=== PATIENT | male | born 1970 | race Caucasian/White ===

== ENCOUNTER 2019-04-07 16:04 | Emergency (ER) | payer OTHER ==
[2019-04-07] MEDS ORDERED: SODIUM CHLORIDE 0.9% 1,000 ML IV STA ×2 (16:17)
[2019-04-07] MEDS ORDERED: MORPHINE SULFATE 4 MG/ML SYRINGE IVP STA (16:23)
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
[2019-04-07 16:45] LABS: Basophils # (A) 0.1 k/uL (0-0.2); Basophils % (A) 1 %; Eosinophils # (A) 0.4 k/uL (0-0.7); Eosinophils % (A) 3 %; HCT 43.5 % (39.0-53.0); Lymphocytes # (A) 2.4 k/uL (1.0-4.8); Lymphocytes % (A) 19 %; MCH 28.1 pg (25.0-35.0); MCHC 32.3 g/dL (31.0-37.0); Mean Platelet Volume 6.7; Monocytes # (A) 0.6 k/uL (0-1.0); Monocytes % (A) 5 %; Neutrophils % (A) 71 %; Platelet Count 457 k/uL (150-450); RDW 13.1 % (11.5-15.5); WBC 12.7 k/uL (3.8-10.6)
[2019-04-07 16:53] LABS: ALT 32 U/L (21-72); AST 28 U/L (17-59); African American GFR (CKD) >90 (>60 ml/min/1.73 sqM); Albumin 4.3 g/dL (3.5-5.0); Alcohol <10 mg/dL; Alkaline Phosphatase 58 U/L (38-126); Anion Gap 9 mmol/L; Blood Urea Nitrogen 23 mg/dL (9-20); Calcium 9.4 mg/dL (8.4-10.2); Carbon Dioxide 30 mmol/L (22-30); Chloride 104 mmol/L (98-107); Glucose 131 mg/dL (74-99); Potassium 4.3 mmol/L (3.5-5.1); Sodium 143 mmol/L (137-145); Total Bilirubin 0.5 mg/dL (0.2-1.3)
[2019-04-07 17:00] LABS: INR 0.9 (<1.2); Prothrombin Time 9.5 sec (9.0-12.0)
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
[2019-04-07 17:02] LABS: Partial Thromboplastin Time 21.4 sec (22.0-30.0)
[2019-04-07] MEDS ORDERED: HYDROmorphone 1 MG/ML 1 ML SYRINGE IVP STA (17:07)
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
[2019-04-07] MEDS ORDERED: PROPOFOL 10 MG/ML 20 ML VIAL IV ONE ×2 (17:47→18:23)
--- NOTE | 2019-04-07 18:49 | XR ---
EXAMINATION TYPE: XR shoulder limited LT DATE OF EXAM: 04/07/2019 COMPARISON: Today HISTORY: Post reduction TECHNIQUE: Single view FINDINGS: There appears to be anatomic reduction of the glenohumeral joint. There is a large chip fra cture of the greater tuberosity of the humerus without significant displacement. There is spurring at the AC joint. IMPRESSION: Anatomic reduction.
[2019-04-07] MEDS ORDERED: KETOROLAC 30 MG/ML 1 ML VIAL IVP STA (19:15)
[2019-04-07] MEDS ORDERED: ACET/COD 300 MG/30 MG STARTER PACK 6 TAB BTL PO STA (19:15)
[2019-04-07 20:12] VITALS: BP 120/77; PULSE 77; RESP 20; TEMP 98.9
== END 2019-04-07 20:14 | disposition home or self-care (01) ==
LOC: EC 16:04
DX: S42.102A Fracture of unspecified part of scapula, left shoulder, initial encounter for closed fracture (principal); S43.005A Unspecified dislocation of left shoulder joint, initial encounter; Z88.0 Allergy status to penicillin; V86.06XA Driver of dirt bike or motor/cross bike injured in traffic accident, initial encounter; Y93.55 Activity, bike riding
CPT/HCPCS: 99285; 23675; 99152; 99153 ×2; 96374; 96375 ×2; 96361 ×4; 36415; 86900; 86901; 80053; 83605; 84484; 85025; 85610; 85730; 86850; 80320; 72170; 73030; 73020; 71045; 72125; 70450; 71260; 74177; J2270; J1885; J1170; J2704; Q9967

== ENCOUNTER → 2019-04-19 | Outpatient (CLI) | payer OTHER ==
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
== END | disposition home or self-care (01) ==
LOC: RADCTMAIN 07:38
PROVIDERS: ATTEND Orthopaedic Surgery
DX: S42.252A Displaced fracture of greater tuberosity of left humerus, initial encounter for closed fracture (principal)

== ENCOUNTER 2024-04-14 14:52 | Emergency (ER) | payer OTHER ==
[2024-04-14 15:10] VITALS: TEMP 97.9
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
[2024-04-14] MEDS: LIDOCAINE 1% INJ 10MG/ML (20 ML MDV) SQ ONE (15:51)
--- NOTE | 2024-04-14 17:33 | ED ---
Wound/Laceration HPI - General Chief Complaint: Wound/Laceration Stated Complaint: L hand finger lac Time Seen by Provider: 04/14/24 15:10 Source: patient, RN notes reviewed Mode of arrival: ambulatory Limitations: no limitations - History of Present Illness Initial Comments: This is a 53-year-old male presents the emergency department chief complaint is a laceration to his left second digit. He was Using a chainsaw when the saw accidentally slipped injuring his left second finger at the PIP joint causing various lacerations. patient states that his mobility is intact to the finger and denies parasthesias. Last tetanus vaccination was approximately 1-1/2 years ago. Patient denies other injuries or acute complaints at this time. - Related Data Previous Rx's Medication Instructions Recorded Cephalexin [Keflex] 500 mg PO Q8HR #21 cap 04/07/19 Famotidine [Pepcid] 20 mg PO BID #28 tablet 04/07/19 predniSONE 50 mg PO DAILY #5 tab 04/07/19 Cephalexin [Keflex] 500 mg PO Q6HR #40 cap 04/14/24 Allergies Allergy/AdvReac Type Severity Reaction Status Date / Time Penicillins Allergy Unknown Verified 04/14/24 15:07 Childhood Review of Systems ROS Statement: Those systems with pertinent positive or pertinent negative responses have been documented in the HPI. ROS Other: All systems not noted in ROS Statement are negative. Past Medical History Past Medical History: No Reported History History of Any Multi-Drug Resistant Organisms: None Reported Past Surgical History: No Surgical Hx Reported Past Psychological History: No Psychological Hx Reported Past Alcohol Use History: None Reported Past Drug Use History: None Reported General Exam Limitations: no limitations General appearance: alert, in no apparent distress Head exam: Present: atraumatic, normocephalic, normal inspection Eye exam: Present: normal appearance, PERRL, EOMI. Absent: scleral icterus, conjunctival injection, periorbital swelling Neck exam: Present: normal inspection. Absent: tenderness, meningismus, lymphadenopathy Respiratory exam: Present: normal lung sounds bilaterally. Absent: respiratory distress, wheezes, rales, rhonchi, stridor Cardiovascular Exam: Present: regular rate, normal rhythm, normal heart sounds. Absent: systolic murmur, diastolic murmur, rubs, gallop, clicks GI/Abdominal exam: Present: soft, normal bowel sounds. Absent: distended, tenderness, guarding, rebound, rigid Left Hand Wrist exam: Present: laceration (3 lacerations measuring aprox. 3 cm by 4 cm extending through the muscle, tendon intact) Neuro motor exam: Present: wrist extension intact, thumb opposition intact, fingers 2-5 abduction intact Neurosensory exam: Present: radial nerve intact Vascular: Present: normal capillary refill. Absent: vascular compromise Back exam: Present: normal inspection Neurological exam: Present: alert, oriented X3, CN II-XII intact Skin exam: Present: warm, dry, intact, normal color. Absent: rash Course Vital Signs 04/14/24 04/14/24 15:08 17:37 Temperature 97.9 F Pulse Rate 75 80 Respiratory 16 18 Rate Blood Pressure 143/87 132/78 O2 Sat by Pulse 97 100 Oximetry Procedures - Laceration Laceration #1 Consent Obtained: verbal consent Indication: laceration Site: hand Size (cm): 4 Description: irregular, contaminated Depth: involves muscle layer Anesthetic Used: lidocaine 1% Anesthesia Technique: local infiltration Amount (mls): 4 Pre-repair: wound explored, irrigated extensively, deep structures intact, foreign body removed, extreme cleansing Type of Sutures: nylon Size of Sutures: 4-0 Number of Sutures: 23 Technique: simple, interrupted Complications: bleeding Patient Tolerated Procedure: well, no complications Medical Decision Making - Medical Decision Making Was pt. sent in by a medical professional or institution (REGGIE Desir, MULTIMEDIA ASSISTANT, urgent care, hospital, or half-way...) When possible be specific @ -No Did you speak to anyone other than the patient for history (EMS, parent, family, police, friend...)? What history was obtained from this source @ -No Did you review nursing and triage notes (agree or disagree)? Why? @ -I reviewed and agree with nursing and triage notes Were old charts reviewed (outside hosp., previous admission, EMS record, old EKG, old radiological studies, urgent care reports/EKG's, half-way records)? Report findings @ -No old charts were reviewed Differential Diagnosis (chest pain, altered mental status, abdominal pain women, abdominal pain men, vaginal bleeding, weakness, fever, dyspnea, syncope, headache, dizziness, GI bleed, back pain, seizure, CVA, palpatations, mental health, musculoskeletal)? @ -Laceration EKG interpreted by me (3pts min.). @ -None X-rays interpreted by me (1pt min.). @ -xray of the left second finger reveals no acute osseous pathology with no radiopaque foreign bodies identified. CT interpreted by me (1pt min.). @ -None done U/S interpreted by me (1pt. min.). @ -None done What testing was considered but not performed or refused? (CT, X-rays, U/S, labs)? Why? @ -None What meds were considered but not given or refused? Why? @ -None Did you discuss the management of the patient with other professionals (professionals i.e. DrOmi, PA, MULTIMEDIA ASSISTANT, lab, RT, psych nurse, social worker clinical, hand stemmer, teacher, flight radio officer, case management rn)? Give summary @ -No Was smoking cessation discussed for >3mins.? @ -No Was critical care preformed (if so, how long)? @ -No Were there social determinants of health that impacted care today? How? (Homele ssness, low income, unemployed, alcoholism, drug addiction, transportation, low edu. Level, literacy, decrease access to med. care, longterm, rehab)? @ -No Was there de-escalation of care discussed even if they declined (Discuss DNR or withdrawal of care, Hospice)? DNR status @ -No What co-morbidities impacted this encounter? (DM, HTN, Smoking, COPD, CAD, Cancer, CVA, ARF, Chemo, Hep., AIDS, mental health diagnosis, sleep apnea, morbid obesity)? @ -None Was patient admitted / discharged? Hospital course, mention meds given and route, prescriptions, significant lab abnormalities, going to OR and other pertinent info. @ -Discharge. 53-year-old male with a laceration. On examination patient noted to have roughly 3 lacerations with total area measuring approximately 3 x 4 cm. Area was thoroughly cleansed with sterile water and Betadine solution. Minimal debris's were removed from the wound. 3 simple interrupted sutures were placed with 4 -0 nylon and area was nummbed with 1% lidocaine, finger was wrapped with gauze and placed in a aluminum form splint.. tolerated procedure well. Have patient follow-up in the emergency department with his primary care provider in the next 10 to 12 days for suture removal. Patient will be present a prescription for Keflex. All questions answered. Bedside and strict return parameters discussed with the patient he is verbalized understanding. Discussed with Dr. Renteria. Undiagnosed new problem with uncertain prognosis? @ -No Drug Therapy requiring intensive monitoring for toxicity (Heparin, Nitro, Insulin, Cardizem)? @ -No Were any procedures done? @ -Thorough wound irrigation, suture repair Diagnosis/symptom? @ -Laceration Acute, or Chronic, or Acute on Chronic? @ -Acute Uncomplicated (without systemic symptoms) or Complicated (systemic symptoms)? @ -Uncomplicated Side effects of treatment? @ -No Exacerbation, Progression, or Severe Exacerbation? @ -No Poses a threat to life or bodily function? How? (Chest pain, [place], [place], pneumonia, PE, COPD, DKA, ARF, appy, cholecystitis, CVA, Diverticulitis, Homicidal, Suicidal, threat to staff... and all critical care pts) @ -No Disposition Clinical Impression: Laceration Disposition: HOME SELF-CARE Condition: Good Instructions (If sedation given, give patient instructions): Care For Your Stitches (ED) Additional Instructions: Return the emergency if your symptoms worsen or not improve. Follow-up with primary care provider or return to the emergency department in the next 10 to 12 days for suture removal. Complete full course of antibiotics as prescribed. Prescriptions: Cephalexin [Keflex] 500 mg PO Q6HR #40 cap Is patient prescribed a controlled substance at d/c from ED?: No Referrals: Ronak Barber MD [Primary Care Provider] - 1-2 days Time of Disposition: 17:32
[2024-04-14 17:37] VITALS: BP 132/78; PULSE 80; RESP 18
== END 2024-04-14 17:37 | disposition home or self-care (01) ==
LOC: EC 14:52
DX: S61.221A Laceration with foreign body of left index finger without damage to nail, initial encounter (principal); Z88.0 Allergy status to penicillin; W29.3XXA Contact with powered garden and outdoor hand tools and machinery, initial encounter
CPT/HCPCS: 73130; 12042; 99283; J2001